=== PATIENT | male | born 1975 | race Caucasian/White ===

== ENCOUNTER 2020-03-09 12:25 | Emergency (ER) | payer MEDICARE, MEDICAID | END 2020-03-09 13:21 | disposition left against medical advice (07) | LOC: ER 12:26 | DX: T65.91XA Toxic effect of unspecified substance, accidental (unintentional), initial encounter (principal); Z53.21 Procedure and treatment not carried out due to patient leaving prior to being seen by health care provider ==

== ENCOUNTER 2021-12-30 09:16 | Emergency (ER) | payer MEDICARE, MEDICAID ==
[~2021-12-30] VITALS: Ht 177.8 cm; Wt 77.0 kg
[2021-12-30 09:22] VITALS: BP 133/100
== END 2021-12-30 10:05 ==
LOC: ER 09:16
DX: S39.81XA Other specified injuries of abdomen, initial encounter (principal); F15.90 Other stimulant use, unspecified, uncomplicated; Z72.89 Other problems related to lifestyle; Z60.2 Problems related to living alone; Z56.0 Unemployment, unspecified; Z59.00 Homelessness unspecified; Z91.013 Allergy to seafood; X58.XXXA Exposure to other specified factors, initial encounter; Y93.89 Activity, other specified; Y92.89 Other specified places as the place of occurrence of the external cause; Y99.8 Other external cause status
CPT/HCPCS: 99283